=== PATIENT | female | born 1950 | race Caucasian/White ===

== ENCOUNTER 2016-07-17 06:27 | Emergency (ER) | payer BC ==
[~2016-07-17] VITALS: Ht 175.3 cm; Wt 97.5 kg
[~2016-07-17 06:27] MED LIST: BENADRYL25 MG PO; CIPRO500 MG PO; ENDOCET 5-3251 EACH PO; FLAGYL500 MG PO; KEFLEX500 MG PO; PERCOCET 5/31 TABLET PO; PYRIDIUM100 MG PO; SYNTHROID112 MCG PO; ZOFRAN ODT4 MG PO
[2016-07-17 07:42] LABS: BASOPHIL COUNT 0.1 K/uL (0-0.1); EOSINOPHIL (%) 2.8 % (0-5); EOSINOPHIL COUNT 0.3 K/uL (0-0.3); HEMATOCRIT 40.9 % (36.0-46.0); IMMATURE GRANULOCYTE (%) 0.4 % (0.0-0.7); INSTRUMENT ABS NEUTROPHIL CT 8.1 K/uL; MCH 27.3 PG (29.0-34.0); MCHC 32.8 G/DL (30.0-36.0); MCV 83.5 FL (83-99); MEAN PLAT.VOLUME 9.9 uM^3 (9.5-12.4); MONOCYTE (%) 7.9 % (3-12); MONOCYTE COUNT 0.9 K/uL (0-0.8); NEUTROPHIL (%) 70.6 % (45-76); NEUTROPHIL COUNT 8.1 K/uL (1.8-6.4); PLATELET COUNT 259 K/uL (156-360); RBC DIS.WIDTH-CV 12.8 % (11.8-14.6); RBC DIS.WIDTH-SD 38.8 % (39-53); WHITE BLOOD COUNT 11.4 K/uL (4.1-10.2)
[2016-07-17 08:29] LABS: ALKALINE PHOSPHATASE 97 IU/L (3-129); ANION GAP 8 MEQ/L (2-14); CHLORIDE 106 MEQ/L (99-109); GFR ESTIMATE (CALCULATED) 59 mL/min/; GLUCOSE 122 mg/dL (70-99); LIPASE 23 U/L (1.0-51.0); POTASSIUM 3.8 MEQ/L (3.7-5.4); SAMPLE HEMOLYSIS CHECK 0; SAMPLE ICTERIC CHECK 0; SAMPLE LIPEMIA CHECK 0; SODIUM 139 MEQ/L (136-147); TOTAL BILIRUBIN 0.6 MG/DL (0.0-1.0); UREA NITROGEN (BUN) 14 mg/dL (9-23)
[2016-07-17 09:02] LABS: ADD MIUA? YES; BILIRUBIN NEGATIVE; BLOOD SMALL; COLOR YELLOW ((YELLOW)); GLUCOSE (STRIP) NEGATIVE; KETONES NEGATIVE; LEUKOCYTES NEGATIVE; NITRITE NEGATIVE; PROTEIN (STRIP) NEGATIVE; SPECIFIC GRAVITY 1.006 (1.000-1.030); UROBILINOGEN 0.2 MG/DL (0.2-1.0)
[2016-07-17 09:18] LABS: BACTERIA RARE /HPF; EPITHELIAL CELLS RARE /HPF; HYALINE CASTS 0-5 /LPF; MUCUS TRACE /LPF; RED BLOOD CELLS 0-5 /HPF (0-5); UCUL ADDED? NO; WHITE BLOOD CELLS 0-5 /HPF (0-5)
[2016-07-17] MEDS ORDERED: ADVIL200 M1 PO (09:36)
[2016-07-17] MEDS ORDERED: ZOFRAN ODT4 MG PO (09:46)
[2016-07-17] MEDS ORDERED: COLACE100 MG PO (09:46)
[2016-07-17] MEDS ORDERED: BENTYL20 MG PO (09:46)
[2016-07-17 10:17] VITALS: BP 142/72
== END 2016-07-17 10:17 | disposition home or self-care (01) ==
LOC: EME 06:27
PROVIDERS: Emergency Medicine
DX: R10.9 Unspecified abdominal pain (principal); K59.00 Constipation, unspecified
CPT/HCPCS: 74020; 80053; 81003; 83690; 85025; 99281; 99284; J2765; J7030

== ENCOUNTER 2016-07-24 15:00 | Observation (INO) | payer BC ==
[~2016-07-24] VITALS: Ht 177.8 cm; Wt 97.8 kg
[~2016-07-24 15:00] MED LIST changes: +ADVIL200 M1 PO; +BENTYL20 MG PO; +COLACE100 MG PO
[2016-07-24] MEDS ORDERED: NEO-SYNEPHRINE15 M4 BOTH NARES (18:00)
[2016-07-24 18:05] LABS: BASOPHIL COUNT 0.1 K/uL (0-0.1); EOSINOPHIL (%) 3.6 % (0-5); EOSINOPHIL COUNT 0.4 K/uL (0-0.3); HEMATOCRIT 43.9 % (36.0-46.0); IMMATURE GRANULOCYTE (%) 0.4 % (0.0-0.7); INSTRUMENT ABS NEUTROPHIL CT 5.6 K/uL; LYMPHOCYTE COUNT 3.1 K/uL (1.0-2.8); MCH 27.2 PG (29.0-34.0); MCHC 32.6 G/DL (30.0-36.0); MCV 83.5 FL (83-99); MEAN PLAT.VOLUME 9.8 uM^3 (9.5-12.4); MONOCYTE (%) 6.7 % (3-12); MONOCYTE COUNT 0.7 K/uL (0-0.8); NEUTROPHIL (%) 57.4 % (45-76); NEUTROPHIL COUNT 5.6 K/uL (1.8-6.4); PLATELET COUNT 298 K/uL (156-360); RBC DIS.WIDTH-CV 12.6 % (11.8-14.6); RBC DIS.WIDTH-SD 38.2 % (39-53); RED BLOOD COUNT 5.26 M/uL (3.80-5.20); WHITE BLOOD COUNT 9.8 K/uL (4.1-10.2)
[2016-07-24 18:14] LABS: CHLORIDE 105 mEq/L (99-109); POTASSIUM 3.4 mEq/L (3.7-5.4); SODIUM 139 mEq/L (136-147)
[2016-07-24 18:15] LABS: GLUCOSE 97 mg/dL (70-99)
[2016-07-24 18:17] LABS: ANION GAP 13 MEQ/L (2-14)
[2016-07-24 18:19] LABS: GFR ESTIMATE (CALCULATED) 59 mL/min/
[2016-07-24 18:20] LABS: UREA NITROGEN (BUN) 14 mg/dL (9-23)
[2016-07-25 00:16] LABS: D-DIMER ELISA 0.38 mg/L FEU (< 0.57)
[2016-07-25 00:38] VITALS: BP 187/86
[2016-07-25 03:21] VITALS: BP 126/58
[2016-07-25 05:32] LABS: HEMATOCRIT 38.9 % (36.0-46.0); MCH 27.3 PG (29.0-34.0); MCHC 32.6 G/DL (30.0-36.0); MCV 83.5 FL (83-99); MEAN PLAT.VOLUME 10.2 uM^3 (9.5-12.4); PLATELET COUNT 294 K/uL (156-360); RBC DIS.WIDTH-CV 12.9 % (11.8-14.6); RBC DIS.WIDTH-SD 38.8 % (39-53); RED BLOOD COUNT 4.66 M/uL (3.80-5.20); WHITE BLOOD COUNT 9.8 K/uL (4.1-10.2)
[2016-07-25 05:56] LABS: ALKALINE PHOSPHATASE 82 IU/L (3-129); ANION GAP 12 MEQ/L (2-14); CHLORIDE 110 MEQ/L (99-109); GFR ESTIMATE (CALCULATED) 59 mL/min/; POTASSIUM 3.8 MEQ/L (3.7-5.4); SAMPLE HEMOLYSIS CHECK 0; SAMPLE ICTERIC CHECK 0; SAMPLE LIPEMIA CHECK 0; SODIUM 140 MEQ/L (136-147); TOTAL BILIRUBIN 0.2 MG/DL (0.0-1.0); UREA NITROGEN (BUN) 14 mg/dL (9-23)
[2016-07-25 06:12] LABS: GLUCOSE 242 mg/dL (70-99)
[2016-07-25 08:55] VITALS: BP 139/70
[2016-07-25] MEDS ORDERED: CEFTIN500 MG PO (11:15)
[2016-07-25] MEDS ORDERED: DUONEB 2.5-0.5 M3 ML AEROSOL (11:17)
[2016-07-25] MEDS ORDERED: PREDNISONE10 MG PO (11:17)
[2016-07-25 11:28] VITALS: BP 138/62
== END 2016-07-25 12:01 | disposition home or self-care (01) ==
LOC: EME 15:00 → EDOF 23:05 → 5WEST 23:05 → EDOF 07-25 00:26 → 5WEST 07-25 00:33
PROVIDERS: Internal Medicine; Physician Assistant
DX: R06.02 Shortness of breath (principal); J38.4 Edema of larynx; E03.9 Hypothyroidism, unspecified; I10 Essential (primary) hypertension
CPT/HCPCS: 70360; 70491; 71020; 80048; 80053; 84443; 85025; 85027; 85379; 87651 90; 93005; 94640; 94640 76; 99202; 99281; 99285; G0378; J0360; J0696; J1100; J1200; J7030; J7050